=== PATIENT | female | born 1975 | race Caucasian/White ===

== ENCOUNTER 2016-05-11 11:50 | Day surgery (SDC) | payer BC ==
[~2016-05-11] VITALS: Ht 160 cm; Wt 96.0 kg
[2016-05-11] MEDS ORDERED: TRI-TAB11 PO (13:02)
[2016-05-11] MEDS ORDERED: ZOLO100T PO (13:02)
[2016-05-11] MEDS ORDERED: LEVO25TA5 PO (13:03)
[2016-05-11 13:50] LABS: CONTROL LINE UCG INT CTR LINE PRESENT
[2016-05-11] MEDS ORDERED: ceFAZolin 1GM INJ (J0690) As Ordered ONE (15:42)
[2016-05-11] MEDS ORDERED: PROPOFOL 500 MG/50 ML VIAL As Ordered ONE (16:33)
[2016-05-11] MEDS ORDERED: fentaNYL 100 MCG/2 ML INJECTION (J3010) As Ordered ONE (16:33)
[2016-05-11] MEDS ORDERED: MIDAZOLAM INJ 2 MG/2 ML VIAL (J2250) As Ordered ONE (16:33)
[2016-05-11] MEDS ORDERED: ceFAZolin 1GM INJ (J0690) IR ONE (16:39)
[2016-05-11] MEDS ORDERED: DESFLURANE 240 ML INHALANT As Ordered ONE (16:43)
--- NOTE | 2016-05-11 17:26 | REP ---
Clinical: Fracture repair. Technique: Intraoperative fluoroscopic imaging. Findings: Multiple intraoperative fluoroscopic images demonstrate the patient to be status post open reduction and fixation for medial and lateral malleolar fractures. Satisfactory alignment. Total fluoroscopic time 10 seconds. Impression: Status post open reduction and fixation for medial and lateral malleolar fractures. Signed by Cj Olmos MD 05/11/2016 05:17 P
[2016-05-11] MEDS ORDERED: PERCOCET 5MG/325MG TAB PO PRN (18:00)
[2016-05-11] MEDS ORDERED: LR 1,000 ML IV SCH (18:00)
[2016-05-11] MEDS ORDERED: fentaNYL 100 MCG/2 ML INJECTION (J3010) IV PRN (18:00)
[2016-05-11] MEDS ORDERED: ONDANSETRON 4MG/2ML VIAL (J2405) IV PRN (18:00)
[2016-05-11 18:30] VITALS: BP 150/90
[2016-05-11] MEDS: LR 1,000 ML IV SCH ×2 (18:53→23:24)
[2016-05-11 18:59] VITALS: BP 152/86
[2016-05-11] MEDS: NORCO, ANEXSIA 5/325MG TABLET (HYDROcodone/ACETAMINOPHEN) PO PRN ×2 (19:02→20:07)
[2016-05-11 20:00] VITALS: BP 160/104
[2016-05-11] MEDS: MORPHINE 4 MG/ML 1ML SYRINGE IV PRN ×2 (20:09→23:23)
[2016-05-11 21:00] VITALS: BP 152/90
[2016-05-11 22:00] VITALS: BP 148/82
[2016-05-11 23:00] VITALS: BP 150/84
[2016-05-12] MEDS: NORCO, ANEXSIA 5/325MG TABLET (HYDROcodone/ACETAMINOPHEN) PO PRN ×3 (01:44→10:19)
[2016-05-12 02:00] VITALS: BP 140/88
[2016-05-12 06:00] VITALS: BP 134/82
[2016-05-12] MEDS ORDERED: ASPI325T PO (07:38)
[2016-05-12] MEDS ORDERED: PERC5TAB6 PO (07:38)
[2016-05-12] MEDS ORDERED: ASPIRIN 325 MG TAB PO SCH (09:00)
[2016-05-12 10:00] VITALS: BP 124/72
--- NOTE | 2016-05-12 12:11 | RO ---
DATE OF PROCEDURE: 05/11/2016 PREPROCEDURE DIAGNOSIS: Right trimalleolar ankle fracture. POSTPROCEDURE DIAGNOSIS: Right trimalleolar ankle fracture. PROCEDURE: Open reduction, internal fixation (ORIF) of a right trimalleolar ankle fracture. SURGEON: Dr. Jasmyne Angulo [employer]: ANESTHESIA: Spinal. COMPLICATIONS: None. ESTIMATED BLOOD LOSS: Less than 20 mL. SPECIMENS: None. COMPLICATIONS: None. DESCRIPTION OF PROCEDURE: Antibiotics were given intravenously, preoperatively, and then a successful spinal anesthetic was induced. Tourniquet was placed on right upper thigh and not inflated. Right lower extremities was prepped and draped in the usual sterile fashion, elevated. After appropriate time-out, the tourniquet was inflated to 150 mmHg. Longitudinal incision was made over the distal fibula, exposing the fracture site, which was irrigated and then reduced with a clamp and fluoroscopic imaging showed good reduction. I then opened medially with a small longitudinal incision, protecting the saphenous nerve and the vein, reflecting it posteriorly. The medial malleolar transverse fracture was exposed, irrigated and then clamped and positioned and the guide pin from the 4.5 cannulated set was drilled across and checked under fluoroscopic imaging and then it was in good position and thus I drilled the near cortex and placed a 46 partially threaded 4.5 cannulated screw with excellent purchase. Fluoroscopic imaging at this point showed that we again had good reduction in the medial malleolus, as well as the lateral malleolus. I turned my attention back to the lateral malleolus and interfragmentary compression screw with plates across the fracture site using a 3.5 and the 2.5 drill, followed by a 20 mm fully threaded cortical crew. Then a 6-hole plate was contoured appropriately and applied across the fracture site as a neutralization plate and secured distally. The two holes were filled with cancellous screws and then proximal three holes were filled with cortical screw, all with excellent purchase. Fluoroscopic imaging at this point showed AP, lateral, and mortise planes showed that the reduction well maintained, hardware in good position. The tourniquet was released. At this point, I copiously irrigated the wounds, closed the medial wound with asher and laterally with interrupted #2-0 Vicryl and asher. Then a dry, sterile, bulky dressing was applied and a well padded short leg plaster cast was applied and she was transferred to the recovery room in stable condition. There were no intraoperative complications.
== END 2016-05-12 11:32 | disposition home or self-care (01) ==
LOC: M SDC 11:50 → M MS5PR 18:27 → M SDC 05-12 11:32
PROVIDERS: ATTEND Orthopaedic Surgery
DX: S82.851A Displaced trimalleolar fracture of right lower leg, initial encounter for closed fracture (principal); X58.XXXA Exposure to other specified factors, initial encounter; Y92.093 Driveway of other non-institutional residence as the place of occurrence of the external cause; Y93.89 Activity, other specified; Y99.8 Other external cause status; E03.9 Hypothyroidism, unspecified; F41.9 Anxiety disorder, unspecified; Z79.899 Other long term (current) drug therapy
CPT/HCPCS: 27822; 73610; 84703; 96374; 96375; 96376; 97116; C1776; J0690; J2250; J3010